=== PATIENT | female | born 1965 | race American Indian/Alaskan Native ===

== ENCOUNTER 2020-05-21 14:13 | Emergency (ER) | payer MEDICARE ==
[2020-05-21 14:24] VITALS: BP 133/71
--- NOTE | 2020-05-21 17:03 | Emergency Department Report ---
- General Chief complaint: Skin Rash Stated complaint: ALLERGIC REACTION Time Seen by Provider: 05/21/20 16:56 Source: patient Mode of arrival: Ambulatory Limitations: No Limitations - History of Present Illness Initial comments: Two 4-year-old female status post port removal in March 09 presents emerged from complaining of pruritic rash that began 1 to 2weeks and progressively worsening fashion. She states that she has been having some clear drainage from the wound and extreme pruritus which is now beginning to move towards her shoulder and her right jaw region. Ports no wheezing, no fevers, chills, sweats no nausea vomiting she is not medical follow-up appointment with her PCP Or Left last wrist feels responsible for the port placement MD complaint: rash - Related Data Previous Rx's Medication Instructions Recorded Last Taken Type Mometasone Furoate [Elocon] 1 applicatio TP QDAY #1 cream..g. 05/21/20 Unknown Rx cephALEXin [Keflex] 500 mg PO Q8HR #30 cap 05/21/20 Unknown Rx hydrOXYzine HCL [Atarax] 25 mg PO Q6HR PRN #20 tablet 05/21/20 Unknown Rx predniSONE [Deltasone] 20 mg PO QDAY #7 tab 05/21/20 Unknown Rx Allergies Allergy/AdvReac Type Severity Reaction Status Date / Time levofloxacin [From Levaquin] Allergy Hives Verified 05/21/20 14:23 Abscess Boil HPI - HPI Chief Complaint: Skin Rash Stated Complaint: ALLERGIC REACTION Time Seen by Provider: 05/21/20 16:56 Home Medications: Previous Rx's Medication Instructions Recorded Last Taken Type Mometasone Furoate [Elocon] 1 applicatio TP QDAY #1 cream..g. 05/21/20 Unknown Rx cephALEXin [Keflex] 500 mg PO Q8HR #30 cap 05/21/20 Unknown Rx hydrOXYzine HCL [Atarax] 25 mg PO Q6HR PRN #20 tablet 05/21/20 Unknown Rx predniSONE [Deltasone] 20 mg PO QDAY #7 tab 05/21/20 Unknown Rx Allergies/Adverse Reactions: Allergies Allergy/AdvReac Type Severity Reaction Status Date / Time levofloxacin [From Levaquin] Allergy Hives Verified 05/21/20 14:23 ED Review of Systems ROS: Stated complaint: ALLERGIC REACTION Other details as noted in HPI Comment: All other systems reviewed and negative Constitutional: denies: chills, fever Eyes: denies: eye pain, eye discharge, vision change ENT: denies: ear pain, throat pain Respiratory: denies: cough, shortness of breath, wheezing Cardiovascular: denies: chest pain, palpitations Endocrine: no symptoms reported Gastrointestinal: denies: abdominal pain, nausea, diarrhea Genitourinary: denies: urgency, dysuria, discharge Musculoskeletal: denies: back pain, joint swelling, arthralgia Skin: rash, change in color, pruritus. denies: lesions Neurological: denies: headache, weakness, paresthesias Psychiatric: denies: anxiety, depression Hematological/Lymphatic: denies: easy bleeding, easy bruising ED Past Medical Hx - Past Medical History Previous Medical History?: Yes Hx Congestive Heart Failure: Yes Hx Asthma: Yes Hx COPD: Yes Additional medical history: lymphodema, CIDP - Social History Smoking Status: Current Every Day Smoker Substance Use Type: None - Medications Home Medications: Home Medications Medication Instructions Recorded Confirmed Last Taken Type Mometasone Furoate [Elocon] 1 applicatio TP QDAY #1 cream..g. 05/21/20 Unknown Rx cephALEXin [Keflex] 500 mg PO Q8HR #30 cap 05/21/20 Unknown Rx hydrOXYzine HCL [Atarax] 25 mg PO Q6HR PRN #20 tablet 05/21/20 Unknown Rx predniSONE [Deltasone] 20 mg PO QDAY #7 tab 05/21/20 Unknown Rx ED Physical Exam - General Limitations: No Limitations General appearance: alert, in no apparent distress - Head Head exam: Present: atraumatic, normocephalic - Eye Eye exam: Present: normal appearance - ENT ENT exam: Present: mucous membranes moist - Neck Neck exam: Present: normal inspection - Respiratory Respiratory exam: Present: normal lung sounds bilaterally. Absent: respiratory distress - Cardiovascular Cardiovascular Exam: Present: regular rate, normal rhythm. Absent: systolic murmur, diastolic murmur, rubs, gallop - GI/Abdominal GI/Abdominal exam: Present: soft, normal bowel sounds - Extremities Exam Extremities exam: Present: normal inspection - Back Exam Back exam: Present: normal inspection - Neurological Exam Neurological exam: Present: alert, oriented X3 - Psychiatric Psychiatric exam: Present: normal affect, normal mood - Skin Skin exam: Present: warm, rash, erythema (Scaly macular rough rash to left upper chest in the area of the port removal minimal warmth no lymphangitis is noted. There is some excoriation) ED Course Vital Signs 05/21/20 14:23 Temperature 99.0 F Pulse Rate 117 H Respiratory 18 Rate Blood Pressure 133/71 [Right] O2 Sat by Pulse 96 Oximetry Critical care attestation.: If time is entered above; I have spent that time in minutes in the direct care of this critically ill patient, excluding procedure time. ED Disposition Clinical Impression: Rash Disposition: DC-01 TO HOME OR SELFCARE Is pt being admited?: No Does the pt Need Aspirin: No Condition: Stable Instructions: Rash, Adult Additional Instructions: Please be sure to follow up with your PCP in 48 hours. Please be sure to wash area with antimicrobial soap and you may start to utilize the Claritin in conjunction with the prescriptions that you were provided with today Prescriptions: hydrOXYzine HCL [Atarax] 25 mg PO Q6HR PRN #20 tablet PRN Reason: Itching predniSONE [Deltasone] 20 mg PO QDAY #7 tab Mometasone Furoate [Elocon] 1 applicatio TP QDAY #1 cream..g. cephALEXin [Keflex] 500 mg PO Q8HR #30 cap Referrals: MIRIAN YOUNG MD, PHD [Referring] - 2-3 Days (Please be sure to follow up)
== END 2020-05-21 17:20 | disposition home or self-care (01) ==
LOC: ED 14:13
DX: R21 Rash and other nonspecific skin eruption (principal); J44.9 Chronic obstructive pulmonary disease, unspecified; I50.9 Heart failure, unspecified; F17.200 Nicotine dependence, unspecified, uncomplicated; Z88.8 Allergy status to other drugs, medicaments and biological substances; Z79.899 Other long term (current) drug therapy
CPT/HCPCS: 99281

== ENCOUNTER 2020-08-12 11:43 | Emergency (ER) | payer MEDICARE ==
[2020-08-12 12:06] VITALS: BP 124/74
[2020-08-12] MEDS ORDERED: SODIUM CHLORIDE 0.9% 1000 ML 1,000 ML IV ONE (12:31)
--- NOTE | 2020-08-12 13:08 | XRay Report ---
CHEST 2 VIEWS INDICATION: Syncope. COMPARISON: None FINDINGS: Support devices: Right IJ Idzoio-e-Hxab terminates near the cavoatrial junction. Heart: Within normal limits. Lungs/pleura: No acute air space or interstitial disease. No pneumothorax. Additional findings: None. IMPRESSION: Normal chest x-ray Signer Name: Elvis Gurrola Jr, MD Signed: 08/12/2020 1:03 PM Workstation Name: [id number]
--- NOTE | 2020-08-12 14:10 | Event Note ---
ED Screening Note Date of service: 08/12/20 Time: 12:33 ED Screening Note: This initial assessment/diagnostic orders/clinical plan/treatment(s) is/are subject to change based on patients health status, clinical progression and re- assessment by fellow clinical providers in the ED. Further treatment and workup at subsequent clinical providers discretion. Patient/guardian urged not to elope from the ED as their condition may be serious if not clinically assessed and managed. Initial orders include:
--- NOTE | 2020-08-14 14:21 | Cat Scan Report ---
CT head without contrast INDICATION: Syncope TECHNIQUE: Axial images were performed without contrast. FINDINGS: There is no acute intracranial hemorrhage. Ventricles are normal in size without midline sh ift or mass effect. Rowland-white matter differentiation appears normal. No acute bone findings are seen . Visualized orbits appear normal. IMPRESSION: No acute intracranial findings. Signer Name: Dylon Dorman MD Signed: 08/12/2020 2:51 PM Workstation Name: [id number]
== END 2020-08-13 04:37 | disposition left against medical advice (07) ==
LOC: ED 11:43
DX: R55 Syncope and collapse (principal); Z53.21 Procedure and treatment not carried out due to patient leaving prior to being seen by health care provider
CPT/HCPCS: 70450; 71046; 82962; 93005

== ENCOUNTER 2020-09-23 19:34 | Inpatient (IN) | payer MEDICARE ==
--- NOTE | 2020-09-23 19:51 | Event Note ---
ED Screening Note Date of service: 09/23/20 Time: 19:49 ED Screening Note: 55 yr old c/o chest pain, sob, dizziness and light headedness x 3 days pmhx: DM, CHF, and CIDP for which she gets IVF treatments once a month. She also reports "mild" CA and "mild" CVA in past. She has a port in her right chest. This initial assessment/diagnostic orders/clinical plan/treatment(s) is/are subject to change based on patients health status, clinical progression and re- assessment by fellow clinical providers in the ED. Further treatment and workup at subsequent clinical providers discretion. Patient/guardian urged not to elope from the ED as their condition may be serious if not clinically assessed and managed. Initial orders include: Chest pain order set
[2020-09-23] MEDS ORDERED: SODIUM CHLORIDE 0.9% 1000 ML 1,000 ML ONE (20:13)
[2020-09-23] MEDS ORDERED: SODIUM CHLORIDE 0.9% 1000 ML 1,000 ML IV ONE ×2 (20:15)
--- NOTE | 2020-09-23 20:21 | Emergency Department Report ---
HPI - General Chief Complaint: Chest Pain Time Seen by Provider: 09/23/20 20:00 - [facility] HPI: Room 24 The patient is a 55-year-old female present with a chief complaint of chest pain. Patient states today while going upstairs she began to feel weak and ti red. Patient states she felt near syncopal and her legs began feeling weak. Patient states she has developed substernal chest pain radiating to the right chest that was sharp and intermittent in nature. Patient states her pain is associated with shortness of breath, nausea/vomiting and diaphoresis. Patient currently gives her chest pain score of 8/10. Patient denies history of fever or cough. The patient states 2 to 3 weeks ago she had a syncopal episode but never came to the hospital for evaluation. The patient states she last received IVIG for her history of chronic inflammatory demyelinating polyneuropathy (CIDP) 1 week ago. ED Past Medical Hx - Past Medical History Hx Congestive Heart Failure: Yes Hx Diabetes: Yes Hx Asthma: Yes Hx COPD: Yes Additional medical history: lymphodema, chronic inflammatory demyelinating polyneuropathy (CIDP) - Surgical History Past Surgical History?: Yes Additional Surgical History: D&C x 3. tubal ligation. PowerPort placement - Family History Family history: no significant - Social History Smoking Status: Current Some Day Smoker (Black and milds) Substance Use Type: None (Denies illicit drug use), Alcohol (Occasional) - Medications Home Medications: Home Medications Medication Instructions Recorded Confirmed Last Taken Type Mometasone Furoate [Elocon] 1 applicatio TP QDAY #1 cream..g. 05/21/20 Unknown Rx cephALEXin [Keflex] 500 mg PO Q8HR #30 cap 05/21/20 Unknown Rx hydrOXYzine HCL [Atarax] 25 mg PO Q6HR PRN #20 tablet 05/21/20 Unknown Rx predniSONE [Deltasone] 20 mg PO QDAY #7 tab 05/21/20 Unknown Rx ED Review of Systems ROS: Stated complaint: CHEST PAIN/WEAKNESS Other details as noted in HPI Constitutional: malaise, weakness. denies: fever Eyes: denies: eye pain ENT: denies: ear pain Respiratory: shortness of breath Cardiovascular: chest pain Endocrine: no symptoms reported Gastrointestinal: nausea, vomiting Musculoskeletal: denies: back pain Neurological: denies: headache Physical Exam - Physical Exam Vital Signs: Laboratory Tests 09/23/20 09/23/20 09/23/20 20:08 20:17 20:17 WBC 6.4 RBC 4.01 Hgb 11.3 Hct 34.6 MCV 87 MCH 28 MCHC 33 RDW 16.1 H Plt Count 313 Lymph % (Auto) 32.2 Trimble % (Auto) 12.6 H Eos % (Auto) 2.2 Baso % (Auto) 0.6 Lymph # (Auto) 2.1 Trimble # (Auto) 0.8 Eos # (Auto) 0.1 Baso # (Auto) 0.0 Seg Neutrophils % 52.4 Seg Neutrophils # 3.3 PT INR D-Dimer Sodium 131 L Potassium 3.3 L Chloride 93.0 L Carbon Dioxide 28 Anion Gap 13 BUN 19 H Creatinine 1.7 H Estimated GFR 38 BUN/Creatinine Ratio 11 Glucose 79 POC Glucose 78 Lactic Acid Calcium 9.0 Total Bilirubin 0.20 AST 26 ALT 13 Alkaline Phosphatase 82 Troponin T < 0.010 Total Protein 9.6 H Albumin 3.0 L Albumin/Globulin Ratio 0.5 Lipase 16 TSH Free T4 09/23/20 09/23/20 09/23/20 20:17 20:17 20:19 WBC RBC Hgb Hct MCV MCH MCHC RDW Plt Count Lymph % (Auto) Trimble % (Auto) Eos % (Auto) Baso % (Auto) Lymph # (Auto) Trimble # (Auto) Eos # (Auto) Baso # (Auto) Seg Neutrophils % Seg Neutrophils # PT 12.6 INR 0.95 D-Dimer 628.7 H Sodium Potassium Chloride Carbon Dioxide Anion Gap BUN Creatinine Estimated GFR BUN/Creatinine Ratio Glucose POC Glucose Lactic Acid 2.60 H* Calcium Total Bilirubin AST ALT Alkaline Phosphatase Troponin T Total Protein Albumin Albumin/Globulin Ratio Lipase TSH Free T4 09/23/20 20:19 WBC RBC Hgb Hct MCV MCH MCHC RDW Plt Count Lymph % (Auto) Trimble % (Auto) Eos % (Auto) Baso % (Auto) Lymph # (Auto) Trimble # (Auto) Eos # (Auto) Baso # (Auto) Seg Neutrophils % Seg Neutrophils # PT INR D-Dimer Sodium Potassium Chloride Carbon Dioxide Anion Gap BUN Creatinine Estimated GFR BUN/Creatinine Ratio Glucose POC Glucose Lactic Acid Calcium Total Bilirubin AST ALT Alkaline Phosphatase Troponin T Total Protein Albumin Albumin/Globulin Ratio Lipase TSH 2.780 Free T4 1.33 Physical Exam: GENERAL: The patient is well-developed well-nourished female lying on stretcher not appearing to be in acute distress. [] HEENT: Normocephalic. Atraumatic. Extraocular motions are intact. Patient has moist mucous membranes. NECK: Supple. Trachea midline CHEST/LUNGS: Clear to auscultation. There is no respiratory distress noted. HEART/CARDIOVASCULAR: Regular. There is tachycardia. There is no gallop rub or murmur. ABDOMEN: Abdomen is soft, nontender. Patient has normal bowel sounds. There is no abdominal distention. SKIN: There is no rash. There is no edema. There is no diaphoresis. NEURO: The patient is awake, alert, and oriented. The patient is cooperative. The patient has no focal neurologic deficits. The patient has normal speech MUSCULOSKELETAL: There is no evidence of acute injury. ED Medical Decision Making - Lab Data Result diagrams: 09/23/20 20:17 09/23/20 20:17 Laboratory Tests 09/23/20 09/23/20 09/23/20 20:08 20:17 20:17 WBC 6.4 RBC 4.01 Hgb 11.3 Hct 34.6 MCV 87 MCH 28 MCHC 33 RDW 16.1 H Plt Count 313 Lymph % (Auto) 32.2 Trimble % (Auto) 12.6 H Eos % (Auto) 2.2 Baso % (Auto) 0.6 Lymph # (Auto) 2.1 Trimble # (Auto) 0.8 Eos # (Auto) 0.1 Baso # (Auto) 0.0 Seg Neutrophils % 52.4 Seg Neutrophils # 3.3 PT INR D-Dimer Sodium 131 L Potassium 3.3 L Chloride 93.0 L Carbon Dioxide 28 Anion Gap 13 BUN 19 H Creatinine 1.7 H Estimated GFR 38 BUN/Creatinine Ratio 11 Glucose 79 POC Glucose 78 Lactic Acid Calcium 9.0 Total Bilirubin 0.20 AST 26 ALT 13 Alkaline Phosphatase 82 Troponin T < 0.010 Total Protein 9.6 H Albumin 3.0 L Albumin/Globulin Ratio 0.5 Lipase 16 TSH Free T4 09/23/20 09/23/20 09/23/20 20:17 20:17 20:19 WBC RBC Hgb Hct MCV MCH MCHC RDW Plt Count Lymph % (Auto) Trimble % (Auto) Eos % (Auto) Baso % (Auto) Lymph # (Auto) Trimble # (Auto) Eos # (Auto) Baso # (Auto) Seg Neutrophils % Seg Neutrophils # PT 12.6 INR 0.95 D-Dimer 628.7 H Sodium Potassium Chloride Carbon Dioxide Anion Gap BUN Creatinine Estimated GFR BUN/Creatinine Ratio Glucose POC Glucose Lactic Acid 2.60 H* Calcium Total Bilirubin AST ALT Alkaline Phosphatase Troponin T Total Protein Albumin Albumin/Globulin Ratio Lipase TSH Free T4 09/23/20 20:19 WBC RBC Hgb Hct MCV MCH MCHC RDW Plt Count Lymph % (Auto) Trimble % (Auto) Eos % (Auto) Baso % (Auto) Lymph # (Auto) Trimble # (Auto) Eos # (Auto) Baso # (Auto) Seg Neutrophils % Seg Neutrophils # PT INR D-Dimer Sodium Potassium Chloride Carbon Dioxide Anion Gap BUN Creatinine Estimated GFR BUN/Creatinine Ratio Glucose POC Glucose Lactic Acid Calcium Total Bilirubin AST ALT Alkaline Phosphatase Troponin T Total Protein Albumin Albumin/Globulin Ratio Lipase TSH 2.780 Free T4 1.33 - EKG Data -: EKG Interpreted by Me EKG shows normal: sinus rhythm Rate: tachycardia (122 bpm) - EKG Data When compared to previous EKG there are: previous EKG unavailable Interpretation: other (No ischemic changes seen) - Radiology Data Radiology results: report reviewed (Chest x-ray, VQ scan), image reviewed (Chest x-ray, VQ scan) interpreted by me: Chest x-ray-no focal infiltrates, no pneumothorax. No foreign body seen [facility] [address] [place] [address] XRay Report Signed Patient: JIMMY KRAFT MR#: [id number] : 1965 Acct:[id number] Age/Sex: 55 / F ADM Date: 09/23/20 Loc: ED Attending Dr: Ordering Physician: ANNETTE COFFEY MD Date of Service: 09/23/20 Procedure(s): XR chest 1V ap Accession Number(s): [id number] cc: ANNETTE COFFEY MD Fluoro Time In Minutes: CHEST 1 VIEW INDICATION: chest pain COMPARISON: 08/12/2020 FINDINGS: SUPPORT DEVICES: Gytzza-q-Lcac catheters tip in the superior vena cava HEART / MEDIASTINUM: No significant abnormality. LUNGS / PLEURA: No significant pulmonary or pleural abnormality. No pneumothorax. ADDITIONAL FINDINGS: IMPRESSION: 1. No acute cardiopulmonary disease Signer Name: Jesse Hwang MD Signed: 09/23/2020 8:52 PM Workstation Name: [id number] Transcribed By: RODRIGUEZ Wiggins ictated By: Jesse Hwang MD Electronically Authenticated By: Jesse Hwang MD Signed Date/Time: 09/23/202051 DD/ 50 TD/TT: [facility] [address] [place] [address] Nuclear Medicine Report Signed Patient: JIMMY KRAFT MR#: [id number] : 1965 Acct:[id number] Age/Sex: 55 / F ADM Date: 09/23/20 Loc: ED Attending Dr: Ordering Physician: ANNETTE COFFEY MD Date of Service: 09/23/20 Procedure(s): NM perfusion only lung scan Accession Number(s): [id number] cc: ANNETTE COFFEY MD NUCLEAR MEDICINE PERFUSION LUNG SCAN INDICATION / CLINICAL INFORMATION: Chest pain, shortness of breath. TECHNIQUE: 5 mCi of Tc-99m MAA were given by IV. COMPARISON: Chest radiograph dated . FINDINGS: PERFUSION: Small predominantly subsegmental perfusion defects are seen. ADDITIONAL FINDINGS: None. IMPRESSION: 1. Intermediate probability for pulmonary embolism. Signer Name: Mariano Vilchis MD Signed: 09/23/2020 11:30 PM Workstation Name: [id number] Transcribed By: FAUZIA Dictated By: Mariano Vilchis MD Electronically A uthenticated By: Mariano Vilchis MD Signed Date/Time: 09/23/202329 DD/ 27 TD/TT: - Differential Diagnosis ACS, pneumonia, PE, pericarditis, GERD Critical care attestation.: If time is entered above; I have spent that time in minutes in the direct care of this critically ill patient, excluding procedure time. ED Disposition Clinical Impression: Chest pain Disposition: OP ADMIT IP TO THIS HOSP Is pt being admited?: Yes Does the pt Need Aspirin: Yes Condition: Fair Instructions: Nonspecific Chest Pain, Adult Referrals: ROSETTE LOPEZ MD [Primary Care Provider] - 3-5 Days Time of Disposition: 23:40 (Hospitalist paged (Dr Gbenle)) Heart Score - HEART Score History: Moderately suspicious EKG: Normal Age: 45-65 Risk factors: 1-2 risk factors Troponin: < normal limit HEART Score: 3
[2020-09-23 20:45] LABS: Basophils % (Auto) 0.6 % (0.0-1.8); Eosinophils # (Auto) 0.1 K/mm3 (0.0-0.4); Eosinophils % (Auto) 2.2 % (0.0-4.3); Hematocrit 34.6 % (30.3-42.9); Hemoglobin 11.3 gm/dl (10.1-14.3); Lymphocytes # (Auto) 2.1 K/mm3 (1.2-5.4); Lymphocytes % (Auto) 32.2 % (13.4-35.0); Mean Corpuscular HGB Conc 33 % (30-34); Mean Corpuscular Volume 87 fl (79-97); Monocytes # (Auto) 0.8 K/mm3 (0.0-0.8); Monocytes % (Auto) 12.6 % (0.0-7.3); Platelet Count 313 K/mm3 (140-440); Red Blood Count 4.01 M/mm3 (3.65-5.03); Red Cell Distribution Width 16.1 % (13.2-15.2)
[2020-09-23 20:56] LABS: INR 0.95 (0.87-1.13)
--- NOTE | 2020-09-23 20:56 | XRay Report ---
CHEST 1 VIEW INDICATION: chest pain COMPARISON: 08/12/2020 FINDINGS: SUPPORT DEVICES: Tnvenc-c-Zlqb catheters tip in the superior vena cava HEART / MEDIASTINUM: No significant abnormality. LUNGS / PLEURA: No significant pulmonary or pleural abnormality. No pneumothorax. ADDITIONAL FINDINGS: IMPRESSION: 1. No acute cardiopulmonary disease Signer Name: Jesse Hwang MD Signed: 09/23/2020 8:52 PM Workstation Name: [id number]
[2020-09-23 21:10] LABS: Alanine Aminotransferase 13 units/L (7-56); BUN/Creatinine Ratio 11; Blood Urea Nitrogen 19 mg/dL (7-17); Hemolysis Index 3
[2020-09-23 21:21] LABS: Free T4 (Free Thyroxine) 1.33 ng/dL (0.76-1.46)
--- NOTE | 2020-09-23 23:34 | Nuclear Medicine Report ---
NUCLEAR MEDICINE PERFUSION LUNG SCAN INDICATION / CLINICAL INFORMATION: Chest pain, shortness of breath. TECHNIQUE: 5 mCi of Tc-99m MAA were given by IV. COMPARISON: Chest radiograph dated . FINDINGS: PERFUSION: Small predominantly subsegmental perfusion defects are seen. ADDITIONAL FINDINGS: None. IMPRESSION: 1. Intermediate probability for pulmonary embolism. Signer Name: Mariano Vilchis MD Signed: 09/23/2020 11:30 PM Workstation Name: [id number]
[2020-09-23] MEDS ORDERED: ASPIRIN 325 MG TAB PO ONE (23:52)
[2020-09-24] MEDS ORDERED: ACETAMINOPHEN 325 MG TAB PO PRN (00:04)
[2020-09-24] MEDS ORDERED: MAGNESIUM HYDROXIDE (MOM) ORAL LIQD UDC PO PRN (00:04)
[2020-09-24] MEDS ORDERED: ONDANSETRON 4 MG/2 ML INJ IV PRN (00:04)
[2020-09-24] MEDS ORDERED: DEXTROSE 50% IN WATER (25GM) 50 ML SYRINGE IV PRN (00:04)
--- NOTE | 2020-09-24 00:15 | History and Physical Report ---
History of Present Illness Date of examination: 09/23/20 Date of admission: 09/23/20 23:53 Chief complaint: Chest Pain History of present illness: 55-year-old female with known history of hypertension, diabetes mellitus, asthma, history of chronic inflammatory demyelinating polyneuropathy presenting to the emergency room today complaining of chest pain. Chest pain is said to be substernal radiating towards the right side of her chest. Has been intermittent and sharp in nature. She has had associated shortness of breath, nausea and vomiting and diaphoresis. Pain is said to be worse on taking a deep breath. Patient denies any fever or chills, denies any cough, denies any headache, however she has had some near syncopal episode. Patient states she has felt weak and gets tired easily. Patient has been on IVIG for her history of chronic inflammatory demyelinating polyneuropathy and last dose of IVIG was gotten about a week ago. Work-up in the emergency room today reveals elevated D-dimer. Chest x-ray, troponin, EKG, and other labs were unremarkable. VQ scan done in the emergency room reveals intermediate possibility for pulmonary embolism. Patient is being admitted for chest pain to rule out pulmonary embolism. She has been started on heparin drip. Past History Past Medical History: diabetes, hypertension, other (Asthma, lymphedema, chronic inflammatory demyelinating polyneuropathy.) Past Surgical History: Other (D&C x3, tubal ligation, PowerPort placement) Social history: smoking (Current daily smoker), alcohol abuse (Occasional alcohol intake) Family history: no significant family history Medications and Allergies Allergies Allergy/AdvReac Type Severity Reaction Status Date / Time levofloxacin [From Levaquin] Allergy Hives Verified 05/21/20 14:23 Home Medications Medication Instructions Recorded Confirmed Last Taken Type Mometasone Furoate [Elocon] 1 applicatio TP QDAY #1 cream..g. 05/21/20 Unknown Rx cephALEXin [Keflex] 500 mg PO Q8HR #30 cap 05/21/20 Unknown Rx hydrOXYzine HCL [Atarax] 25 mg PO Q6HR PRN #20 tablet 05/21/20 Unknown Rx predniSONE [Deltasone] 20 mg PO QDAY #7 tab 05/21/20 Unknown Rx Active Meds: Active Medications Heparin Sodium/Sodium Chloride (Heparin/ 0.45% Nacl-25,000 Unit/500 Ml) 25,000 unit in 500 mls @ 30 mls/hr IV TITR CROW; Protocol Review of Systems Constitutional: no fever, no chills Ears, nose, mouth and throat: no nasal congestion, no sore throat Cardiovascular: chest pain, syncope (Near Syncope), no palpitations Respiratory: no cough, no shortness of breath Gastrointestinal: nausea, vomiting, no abdominal pain, no diarrhea Genitourinary Female: no flank pain, no dysuria, no hematuria Musculoskeletal: no neck pain, no low back pain Integumentary: no rash, no pruritis Exam - Constitutional Vitals: Temp Pulse Resp BP Pulse Ox 97.8 F 106 H 25 H 102/58 98 09/23/20 23:57 09/23/20 23:01 09/23/20 23:01 09/23/20 23:01 09/23/20 23:01 General appearance: Present: no acute distress, well-nourished - EENT Eyes: Present: PERRL, EOM intact. Absent: scleral icterus ENT: hearing intact, clear oral mucosa, dentition normal - Neck Neck: Present: supple, normal ROM - Respiratory Respiratory effort: normal Respiratory: bilateral: CTA - Cardiovascular Rhythm: regular Heart Sounds: Present: S1 & S2. Absent: gallop, systolic murmur, diastolic murmur, rub, click - Extremities Extremities: no ischemia, pulses intact, pulses symmetrical, No edema, normal temperature, normal color, Full ROM Peripheral Pulses: within normal limits - Abdominal General gastrointestinal: Present: soft, non-tender, non-distended, normal bowel sounds. Absent: mass - Integumentary Integumentary: Present: clear, warm, dry. Absent: rash - Musculoskeletal Musculoskeletal: strength equal bilaterally - Psychiatric Psychiatric: appropriate mood/affect, intact judgment & insight, memory intact, cooperative - Neurologic Neurologic: CNII-XII intact, no focal deficits, moves all extremities HEART Score - HEART Score EKG: Normal Age: 45-65 Risk factors: 1-2 risk factors Troponin: Troponin T < 0.010 ng/mL (0.00-0.029) 09/23/20 20:17 Troponin: < normal limit Results - Labs CBC & Chem 7: 09/23/20 20:17 09/23/20 20:17 Labs: Abnormal lab results 03/09/23/20 09/23/20 Range/Units 20:17 20:17 20:17 RDW 16.1 H (13.2-15.2) % [place] % (Auto) 12.6 H (0.0-7.3) % D-Dimer 628.7 H (0-234) ng/mlDDU Sodium 131 L (137-145) mmol/L Potassium 3.3 L (3.6-5.0) mmol/L Chloride 93.0 L (98-107) mmol/L BUN 19 H (7-17) mg/dL Creatinine 1.7 H (0.6-1.2) mg/dL Lactic Acid (0.7-2.0) mmol/L Total Protein 9.6 H (6.3-8.2) g/dL Albumin 3.0 L (3.9-5) g/dL 09/23/20 Range/Units 20:19 RDW (13.2-15.2) % [place] % (Auto) (0.0-7.3) % D-Dimer (0-234) ng/mlDDU Sodium (137-145) mmol/L Potassium (3.6-5.0) mmol/L Chloride (98-107) mmol/L BUN (7-17) mg/dL Creatinine (0.6-1.2) mg/dL Lactic Acid 2.60 H* (0.7-2.0) mmol/L Total Protein (6.3-8.2) g/dL Albumin (3.9-5) g/dL Assessment and Plan - Patient Problems (1) Chest pain Current Visit: Yes Status: Acute Plan to address problem: Patient admitted to the telemetry floor. Will monitor EKG. VQ scan reveals intermediate possibility for a pulmonary embolism. She has been commenced on heparin drip. (2) DVT prophylaxis Current Visit: Yes Status: Acute Plan to address problem: Patient currently on anticoagulation. (3) Full code status Current Visit: Yes Status: Acute Plan to address problem: Patient is full code.
--- NOTE | 2020-09-24 01:14 | Vascular Lab Report ---
VL venous duplex LE BILAT INDICATION / CLINICAL INFORMATION: Pain. TECHNIQUE: Duplex doppler imaging was performed using venous compression and other maneuvers. COMPARISON: None available. FINDINGS: No venous thrombosis is identified within the visualized extremity vasculature. ADDITIONAL FINDINGS: None. IMPRESSION: 1. No sonographic evidence for DVT in the visualized bilateral lower extremity vasculature. Signer Name: Mariano Vilchis MD Signed: 09/24/2020 1:09 AM Workstation Name: [id number]
[2020-09-24] MEDS: HEPARIN/ 0.45% NACL DRIP 25,000 UNIT/500 ML BAG IV SCH ×2 (01:23→20:30)
[2020-09-24] MEDS: INSULIN LISPRO 100 UNIT/ML SUB-Q SCH ×3 (09:19→22:46)
--- NOTE | 2020-09-24 11:16 | Progress Note ---
Assessment and Plan Assessment and plan: -- chest pain; Serial cardiac enzymes negative Patient VQ scan intermediate probability for PE Started on heparin drip,Oxygen titrate O2 sats more than 90% --Acute exacerbation of bronchial asthma; Oxygen, nebulizers, IV steroids, supportive care Pulmonary consult if needed --Intermediate probability for PE/on VQ Full anticoagulation with heparin drip per protocol Echocardiogram, no right heart strain Check proBNP, oxygen titrate O2 sats to more than 90% Lower extremity venous Doppler negative for DVT Consider vascular evaluation if needed --Elevated D-dimers-; VQ scan intermediate probability/on heparin If renal function improves, may check CTA chest to rule out PE --Acute kidney injury; Due to ATN, gentle hydration, monitor renal function Avoid nephrotoxins, nephrology consult if no improvement --DVT prophylaxis; patient is on heparin drip --Full CODE STATUS We will closely monitor the patient and adjust the management as needed Plan of care reviewed with patient, her nurse, case management and [facility] History Interval history: I have seen and examined the patient at the bedside Patient's chart and medications reviewed Patient was admitted with chest pain Elevated D-dimers VQ scan intermediate probability for PE On heparin drip, unable to get CTA due to renal failure In mild distress Vital signs noted Hospitalist Physical - Constitutional Vitals: Temp Pulse Resp BP Pulse Ox 97.8 F 92 H 17 94/51 95 09/23/20 23:57 09/24/20 08:31 09/24/20 08:31 09/24/20 08:31 09/24/20 08:31 General appearance: Present: no acute distress, well-nourished - EENT Eyes: Present: PERRL, EOM intact - Neck Neck: Present: supple, normal ROM - Respiratory Respiratory effort: labored Respiratory: bilateral: diminished, wheezing, negative: rales, rhonchi - Cardiovascular Rhythm: regular Heart Sounds: Present: S1 & S2 - Extremities Extremities: no ischemia, No edema - Abdominal General gastrointestinal: soft, non-tender, non-distended, normal bowel sounds - Integumentary Integumentary: Present: clear, warm - Psychiatric Psychiatric: appropriate mood/affect, cooperative - Neurologic Neurologic: CNII-XII intact, moves all extremities HEART Score - HEART Score EKG: Normal Age: 45-65 Risk factors: 1-2 risk factors Troponin: Troponin T < 0.010 ng/mL (0.00-0.029) 09/24/20 01:30 Troponin: < normal limit Results - Labs CBC & Chem 7: 09/23/20 20:17 09/24/20 11:59 Labs: Laboratory Last Values WBC 6.4 K/mm3 (4.5-11.0) 09/23/20 20:17 RBC 4.01 M/mm3 (3.65-5.03) 09/23/20 20:17 Hgb 11.3 gm/dl (10.1-14.3) 09/23/20 20:17 Hct 34.6 % (30.3-42.9) 09/23/20 20:17 MCV 87 fl (79-97) 09/23/20 20:17 MCH 28 pg (28-32) 09/23/20 20:17 MCHC 33 % (30-34) 09/23/20 20:17 RDW 16.1 % (13.2-15.2) H 09/23/20 20:17 Plt Count 313 K/mm3 (140-440) 09/23/20 20:17 Lymph % (Auto) 32.2 % (13.4-35.0) 09/23/20 20:17 [place] % (Auto) 12.6 % (0.0-7.3) H 09/23/20 20:17 Eos % (Auto) 2.2 % (0.0-4.3) 09/23/20 20:17 Baso % (Auto) 0.6 % (0.0-1.8) 09/23/20 20:17 Lymph # (Auto) 2.1 K/mm3 (1.2-5.4) 09/23/20 20:17 [place] # (Auto) 0.8 K/mm3 (0.0-0.8) 09/23/20 20:17 Eos # (Auto) 0.1 K/mm3 (0.0-0.4) 09/23/20 20:17 Baso # (Auto) 0.0 K/mm3 (0.0-0.1) 09/23/20 20:17 Seg Neutrophils % 52.4 % (40.0-70.0) 09/23/20 20:17 Seg Neutrophils # 3.3 K/mm3 (1.8-7.7) 09/23/20 20:17 PT 12.6 Sec. (12.2-14.9) 09/23/20 20:17 INR 0.95 (0.87-1.13) 09/23/20 20:17 D-Dimer 628.7 ng/mlDDU (0-234) H 09/23/20 20:17 Heparin Anti-Xa Level 0.97 U.I./ml (0.3-0.7) H 09/24/20 09:05 Sodium 131 mmol/L (137-145) L 09/23/20 20:17 Potassium 3.3 mmol/L (3.6-5.0) L 09/23/20 20:17 Chloride 93.0 mmol/L (98-107) L 09/23/20 20:17 Carbon Dioxide 28 mmol/L (22-30) 09/23/20 20:17 Anion Gap 13 mmol/L 09/23/20 20:17 BUN 19 mg/dL (7-17) H 09/23/20 20:17 Creatinine 1.7 mg/dL (0.6-1.2) H 09/23/20 20:17 Estimated GFR 38 ml/min 09/23/20 20:17 BUN/Creatinine Ratio 11 % 09/23/20 20:17 Glucose 79 mg/dL (65-100) 09/23/20 20:17 POC Glucose 112 mg/dL (70-105) H 09/24/20 00:22 Lactic Acid 2.60 mmol/L (0.7-2.0) H* 09/23/20 20:19 Calcium 9.0 mg/dL (8.4-10.2) 09/23/20 20:17 Total Bilirubin 0.20 mg/dL (0.1-1.2) 09/23/20 20:17 AST 26 units/L (5-40) 09/23/20 20:17 ALT 13 units/L (7-56) 09/23/20 20:17 Alkaline Phosphatase 82 units/L (35-129) 09/23/20 20:17 Troponin T < 0.010 ng/mL (0.00-0.029) 09/24/20 01:30 Total Protein 9.6 g/dL (6.3-8.2) H 09/23/20 20:17 Albumin 3.0 g/dL (3.9-5) L 09/23/20 20:17 Albumin/Globulin Ratio 0.5 % 09/23/20 20:17 Lipase 16 units/L (13-60) 09/23/20 20:17 TSH 2.780 mlU/mL (0.270-4.200) 09/23/20 20:19 Free T4 1.33 ng/dL (0.76-1.46) 09/23/20 20:19 Microbiology: Microbiology 09/23/20 20:19 Peripheral/Venous Blood Culture - Preliminary Culture in Progress 09/23/20 20:19 Peripheral/Venous Blood Culture - Preliminary Culture in Progress Active Medications - Current Medications Current Medications: Generic Name Dose Route Start Last Admin Trade Name Freq PRN Reason Stop Dose Admin Acetaminophen 650 mg 09/24/20 00:04 Acetaminophen 325 Mg Tab PO Q4H PRN Pain MILD(1-3)/Fever >100.5/HANEY Amlodipine Besylate 5 mg 09/25/20 10:00 Amlodipine 5 Mg Tab PO DAILY [facility] Atorvastatin Calcium 10 mg 09/24/20 22:00 Atorvastatin 10 Mg Tab PO QHS [facility] Dextrose 50 ml 09/24/20 00:04 Dextrose 50% In Water (25gm) 50 Ml Syringe IV Q30MIN PRN Hypoglycemia Protocol Hydrochlorothiazide 25 mg 09/25/20 10:00 Hydrochlorothiazide 25 Mg Tab PO QDAY [facility] Heparin Sodium/Sodium Chloride 25,000 unit in 500 mls @ 30 mls/hr 09/23/20 23:45 09/24/20 10:49 Heparin/ 0.45% Nacl-25,000 Unit/500 Ml IV 1,300 units/hr TITR CROW 26 mls/hr Titration Protocol 1,500 UNITS/HR Insulin Human Lispro 0 unit 09/24/20 07:30 09/24/20 09:19 Insulin Lispro 100 Unit/Ml SUB-Q Not Given ACHS [facility] Protocol Magnesium Hydroxide 30 ml 09/24/20 00:04 Magnesium Hydroxide (Mom) Oral Liqd Udc PO Q4H PRN Constipation Morphine Sulfate 2 mg 09/24/20 00:04 Morphine 2 Mg/1 Ml Inj IV Q4H PRN Pain, Moderate (4-6) Ondansetron HCl 4 mg 09/24/20 00:04 Ondansetron 4 Mg/2 Ml Inj IV Q8H PRN Nausea And Vomiting Sodium Chloride 10 ml 09/24/20 10:00 Sodium Chloride 0.9% 10 Ml Flush Syringe IV BID CROW Sodium Chloride 10 ml 09/24/20 00:04 Sodium Chloride 0.9% 10 Ml Flush Syringe IV PRN PRN LINE FLUSH
[2020-09-24 13:26] LABS: Calcium 8.2 mg/dL (8.4-10.2)
[2020-09-24] MEDS ORDERED: ALBUTEROL 2.5 MG/3 ML NEBU IH PRN (17:03)
[2020-09-24] MEDS: IPRATROPIUM/ALBUTEROL SULFATE 3 ML AMPUL.NEB IH SCH (19:46)
[2020-09-24] MEDS: MORPHINE 2 MG/1 ML INJ IV PRN (20:30)
[2020-09-25] MEDS: IPRATROPIUM/ALBUTEROL SULFATE 3 ML AMPUL.NEB IH SCH ×4 (03:24→20:50)
[2020-09-25 05:32] LABS: Basophils % (Auto) 0.5 % (0.0-1.8); Eosinophils # (Auto) 0.4 K/mm3 (0.0-0.4); Eosinophils % (Auto) 7.5 % (0.0-4.3); Hematocrit 28.8 % (30.3-42.9); Hemoglobin 9.1 gm/dl (10.1-14.3); Lymphocytes # (Auto) 2.5 K/mm3 (1.2-5.4); Mean Corpuscular HGB Conc 32 % (30-34); Mean Corpuscular Volume 88 fl (79-97); Monocytes # (Auto) 0.7 K/mm3 (0.0-0.8); Monocytes % (Auto) 11.8 % (0.0-7.3); Platelet Count 229 K/mm3 (140-440); Red Blood Count 3.27 M/mm3 (3.65-5.03); Red Cell Distribution Width 15.8 % (13.2-15.2)
[2020-09-25 05:36] LABS: BUN/Creatinine Ratio 19; Blood Urea Nitrogen 17 mg/dL (7-17); Hemolysis Index 0
[2020-09-25 05:39] LABS: INR 1.14 (0.87-1.13)
[2020-09-25] MEDS: INSULIN LISPRO 100 UNIT/ML SUB-Q SCH ×5 (08:45→21:50)
[2020-09-25] MEDS: hydroCHLOROthiazide 25 MG TAB PO SCH (10:24)
[2020-09-25] MEDS: amLODIPine 5 MG TAB PO SCH (10:24)
--- NOTE | 2020-09-25 11:20 | Progress Note ---
Assessment and Plan Assessment and plan: --Intermediate probability for PE/on VQ Full anticoagulation with heparin drip per protocol Echocardiogram, no right heart strain the EF 50% proBNP normal range, oxygen titrate O2 sats to more than 90% Lower extremity venous Doppler negative for DVT Patient creatinine is normal range, will check CTA chest To evaluate for PE --Acute kidney injury; Due to ATN, gentle hydration, monitor renal function Resolved, creatinine within normal range, avoid nephrotoxins -- chest pain; Serial cardiac enzymes negative Patient VQ scan intermediate probability for PE Started on heparin drip,Oxygen titrate O2 sats more than 90% --Acute exacerbation of bronchial asthma; Oxygen, nebulizers, IV steroids, supportive care Pulmonary consult if needed --Elevated D-dimers-; VQ scan intermediate probability/on heparin If renal function improves, may check CTA chest to rule out PE --DVT prophylaxis; patient is on heparin drip --Full CODE STATUS We will closely monitor the patient and adjust the management as needed Plan of care reviewed with patient, her nurse, case management and [facility] 09/24/20; patient had elevated D-dimers, acute kidney injury, VQ scan intermediate probability for PE Patient is on full dose heparin, closely monitor renal function if improves will get CTA chest 09/25/2020; renal function is within normal limits today, will check CT angiogram of the chest to evaluate for PE If no PE will DC heparin drip . Follow CTA chest History Interval history: I have seen and examined the patient at the bedside Patient's chart and medications reviewed Pt intermediate probability for PE on VQ scan,On heparin drip Patient feels better no new complaints Vital signs noted Hospitalist Physical - Constitutional Vitals: Temp Pulse Resp BP Pulse Ox 98.3 F 99 H 15 112/71 96 09/25/20 08:10 09/25/20 08:10 09/25/20 08:10 09/25/20 10:24 09/25/20 08:10 General appearance: Present: no acute distress, well-nourished - EENT Eyes: Present: PERRL, EOM intact - Neck Neck: Present: supple, normal ROM - Respiratory Respiratory effort: normal Respiratory: bilateral: diminished, negative: rales, rhonchi, wheezing - Cardiovascular Rhythm: regular Heart Sounds: Present: S1 & S2 - Extremities Extremities: no ischemia, No edema - Abdominal General gastrointestinal: soft, non-tender, non-distended, normal bowel sounds - Integumentary Integumentary: Present: clear, warm - Psychiatric Psychiatric: appropriate mood/affect, cooperative - Neurologic Neurologic: CNII-XII intact, moves all extremities HEART Score - HEART Score EKG: Normal Age: 45-65 Risk factors: 1-2 risk factors Troponin: Troponin T < 0.010 ng/mL (0.00-0.029) 09/24/20 01:30 Troponin: < normal limit Results - Labs CBC & Chem 7: 09/25/20 05:03 09/25/20 05:03 Labs: Laboratory Last Values WBC 5.9 K/mm3 (4.5-11.0) 09/25/20 05:03 RBC 3.27 M/mm3 (3.65-5.03) L 09/25/20 05:03 Hgb 9.1 gm/dl (10.1-14.3) L 09/25/20 05:03 Hct 28.8 % (30.3-42.9) L 09/25/20 05:03 MCV 88 fl (79-97) 09/25/20 05:03 MCH 28 pg (28-32) 09/25/20 05:03 MCHC 32 % (30-34) 09/25/20 05:03 RDW 15.8 % (13.2-15.2) H 09/25/20 05:03 Plt Count 229 K/mm3 (140-440) 09/25/20 05:03 Lymph % (Auto) 43.0 % (13.4-35.0) H 09/25/20 05:03 [place] % (Auto) 11.8 % (0.0-7.3) H 09/25/20 05:03 Eos % (Auto) 7.5 % (0.0-4.3) H 09/25/20 05:03 Baso % (Auto) 0.5 % (0.0-1.8) 09/25/20 05:03 Lymph # (Auto) 2.5 K/mm3 (1.2-5.4) 09/25/20 05:03 [place] # (Auto) 0.7 K/mm3 (0.0-0.8) 09/25/20 05:03 Eos # (Auto) 0.4 K/mm3 (0.0-0.4) 09/25/20 05:03 Baso # (Auto) 0.0 K/mm3 (0.0-0.1) 09/25/20 05:03 Seg Neutrophils % 37.2 % (40.0-70.0) L 09/25/20 05:03 Seg Neutrophils # 2.2 K/mm3 (1.8-7.7) 09/25/20 05:03 PT 14.5 Sec. (12.2-14.9) 09/25/20 05:03 INR 1.14 (0.87-1.13) H 09/25/20 05:03 D-Dimer 628.7 ng/mlDDU (0-234) H 09/23/20 20:17 Heparin Anti-Xa Level 0.31 U.I./ml (0.3-0.7) 09/24/20 15:38 Sodium 134 mmol/L (137-145) L 09/25/20 05:03 Potassium 3.5 mmol/L (3.6-5.0) L 09/25/20 05:03 Chloride 98.4 mmol/L (98-107) 09/25/20 05:03 Carbon Dioxide 29 mmol/L (22-30) 09/25/20 05:03 Anion Gap 10 mmol/L 09/25/20 05:03 BUN 17 mg/dL (7-17) 09/25/20 05:03 Creatinine 0.9 mg/dL (0.6-1.2) 09/25/20 05:03 Estimated GFR > 60 ml/min 09/25/20 05:03 BUN/Creatinine Ratio 19 % 09/25/20 05:03 Glucose 153 mg/dL (65-100) H 09/25/20 05:03 POC Glucose 120 mg/dL (70-105) H 09/24/20 21:07 Lactic Acid 2.60 mmol/L (0.7-2.0) H* 09/23/20 20:19 Calcium 8.0 mg/dL (8.4-10.2) L 09/25/20 05:03 Total Bilirubin 0.20 mg/dL (0.1-1.2) 09/23/20 20:17 AST 26 units/L (5-40) 09/23/20 20:17 ALT 13 units/L (7-56) 09/23/20 20:17 Alkaline Phosphatase 82 units/L (35-129) 09/23/20 20:17 Troponin T < 0.010 ng/mL (0.00-0.029) 09/24/20 01:30 NT-Pro-B Natriuret Pep 68.00 pg/mL (0-900) 09/24/20 11:59 Total Protein 9.6 g/dL (6.3-8.2) H 09/23/20 20:17 Albumin 3.0 g/dL (3.9-5) L 09/23/20 20:17 Albumin/Globulin Ratio 0.5 % 09/23/20 20:17 Lipase 16 units/L (13-60) 09/23/20 20:17 TSH 2.780 mlU/mL (0.270-4.200) 09/23/20 20:19 Free T4 1.33 ng/dL (0.76-1.46) 09/23/20 20:19 Microbiology: Microbiology 09/23/20 20:19 Peripheral/Venous Blood Culture - Preliminary NO GROWTH AFTER 24 HOURS 09/23/20 20:19 Peripheral/Venous Blood Culture - Preliminary NO GROWTH AFTER 24 HOURS Rapp/IV: Voiding Method Toilet Active Medications - Current Medications Current Medications: Generic Name Dose Route Start Last Admin Trade Name Freq PRN Reason Stop Dose Admin Acetaminophen 650 mg 09/24/20 00:04 Acetaminophen 325 Mg Tab PO Q4H PRN Pain MILD(1-3)/Fever >100.5/HANEY Albuterol 2.5 mg 09/24/20 17:03 Albuterol 2.5 Mg/3 Ml Nebu IH Q4HRT PRN Shortness Of Breath Albuterol/Ipratropium 1 ampul 09/24/20 20:00 09/25/20 08:56 Ipratropium/Albuterol Sulfate 3 Ml Ampul.Neb IH 1 ampul Q6HRT CROW Administration Amlodipine Besylate 5 mg 09/25/20 10:00 09/25/20 10:24 Amlodipine 5 Mg Tab PO Not Given DAILY [facility] Atorvastatin Calcium 10 mg 09/24/20 22:00 09/24/20 22:45 Atorvastatin 10 Mg Tab PO 10 mg QHS CROW Administration Dextrose 50 ml 09/24/20 00:04 Dextrose 50% In Water (25gm) 50 Ml Syringe IV Q30MIN PRN Hypoglycemia Protocol Hydrochlorothiazide 25 mg 09/25/20 10:00 09/25/20 10:24 Hydrochlorothiazide 25 Mg Tab PO 25 mg QDAY CROW Administration Heparin Sodium/Sodium Chloride 25,000 unit in 500 mls @ 30 mls/hr 09/23/20 23:45 09/24/20 20:30 Heparin/ 0.45% Nacl-25,000 Unit/500 Ml IV 1,300 units/hr TITR CROW 26 mls/hr Administration Protocol 1,500 UNITS/HR Insulin Human Lispro 0 unit 09/24/20 07:30 09/25/20 09:30 Insulin Lispro 100 Unit/Ml SUB-Q 2 unit ACHS [facility] Administration Protocol Magnesium Hydroxide 30 ml 09/24/20 00:04 Magnesium Hydroxide (Mom) Oral Liqd Udc PO Q4H PRN Constipation Morphine Sulfate 2 mg 09/24/20 00:04 09/24/20 20:30 Morphine 2 Mg/1 Ml Inj IV 2 mg Q4H PRN Administration Pain, Moderate (4-6) Ondansetron HCl 4 mg 09/24/20 00:04 Ondansetron 4 Mg/2 Ml Inj IV Q8H PRN Nausea And Vomiting Sodium Chloride 10 ml 09/24/20 10:00 09/25/20 10:24 Sodium Chloride 0.9% 10 Ml Flush Syringe IV 10 ml BID CROW Administration Sodium Chloride 10 ml 09/24/20 00:04 Sodium Chloride 0.9% 10 Ml Flush Syringe IV PRN PRN LINE FLUSH Nutrition/Malnutrition Assess - Dietary Evaluation Nutrition/Malnutrition Findings: Nutrition Notes Start: 09/24/20 15:11 Freq: Status: Active Protocol: Document 09/24/20 15:11 AL (Rec: 09/24/20 15:22 AL [id number]) Co-Sign 09/24/20 15:11 LP Nutrition Notes Need for Assessment generated from: MD Order,Education Initial or Follow up Assessment Current Diagnosis COPD,Diabetes,Hypertension, Heart Failure Other Pertinent Diagnosis CIDP, Lymphedema Current Diet Cardiac/ Consistent Carb Labs/Tests Na 131 K 3.3 BUN 79 Cr 1.7 Pertinent Medications Heparin in .45 NS 30 ml/hr Height 5 ft 5 in Weight 108.4 kg [place] Body Weight (kg) 56.81 BMI 39.7 Intake Prior to Admission Fair Weight change and time frame 2% wt loss in 3 months Weight Status Morbidly Obese Subjective/Other Information MD consult for diet education. Pt explained that she also has CHF, COPD, and Lymphedema. Pt reports that appetite has severly decreased. to where she regularly consumes <50% of what she normally eats. This plus a 2% wt loss has happened within past 6 months. Pt very receptive to diet education on DM, CHF, Heart healthy diet and Carb counting. Burn Absent Trauma Absent GI Symptoms Nausea,Vomiting Current % PO Poor (25-49%) Minimum of two criteria No Energy Intake (severe) < or equal to 50% Estimated Energy Requirement > or equal to 5 days #2 Nutrition Diagnosis Predicted suboptimal energy intake Etiology N/V As Evidenced by Signs and Symptoms recent hx of low intakes reported by pt. #1 Nutrition Diagnosis Food and nutrition-related knowledge deficit Etiology DM, CHF, CIPD As Evidenced by Signs and Symptoms Pt has never received diet education before. Is patient on ventilator? No Is Patient Ambulatory and/or Out of Bed No REE-([facility]-confined to bed) 2024.732 Kcal/Kg value to use for calculation 15 Approximate Energy Requirements Using 1626 kcal/Kg Calculation Used for Recommendations Kcal/kg Additional Notes Pro: 66-82 g (.8-1.0 g/kg AdjBW- 82.6) Fluid: 9429-8423 ml Nutrition Intervention Change Diet Order: Current diet as ordered Teaching Recipient Patient Learning Readiness Good Teaching Methods Discussion,Handout Response to Teaching Return demonstration,Verbalize understanding Education Handouts Provided General Healthful Nutrition Therapy Nausea/Vomiting Nutrition Therapy Carb Counting for People with Diabetes Congestive Heart Failure Nutrition Therapy Barriers to Learning No Barriers RD phone number provided Yes Patient aware of follow up options Yes Goal #1 Meet at least 75% of total estimated energy needs PO Anticipated Discharge Needs: Cardiac/ Consistent Carbohydrate diet. Follow-Up By: 09/27/20 Additional Comments FU for intakes, need for ONS
[2020-09-25] MEDS: HEPARIN/ 0.45% NACL DRIP 25,000 UNIT/500 ML BAG IV SCH ×2 (15:19→18:56)
--- NOTE | 2020-09-25 18:03 | Cat Scan Report ---
CTA CHEST WITH IV CONTRAST INDICATION: Shortness of breath, abnormal VQ scan. TECHNIQUE: Axial CT images were obtained through the chest after injection of 100 cc Omni 350 IV contrast. 3 luis ne MIP reconstructions were produced. All CT scans at this location are performed using CT dose reduc tion for ALARA by means of automated exposure control. COMPARISON: None available. FINDINGS: PULMONARY ARTERIES: No pulmonary emboli. THORACIC AORTA: No acute abnormality. HEART: Normal. Persistent left SVC CORONARY ARTERIES: No significant calcification. PLEURA: No pleural effusion. No pneumothorax. LYMPH NODES: No significant adenopathy. LUNGS: No acute air space or interstitial disease. ADDITIONAL FINDINGS: Right internal jugular Port-A-Cath has tip in right atrium UPPER ABDOMEN: No acute findings. SKELETAL STRUCTURES: No significant osseous abnormality. IMPRESSION: 1. No CT evidence for pulmonary embolism. 2. No acute findings. Signer Name: Jose Allen MD Signed: 09/25/2020 5:58 PM Workstation Name: [id number]
[2020-09-25] MEDS ORDERED: POTASSIUM CHLORIDE ER 10 MEQ TAB PO ONE (21:04)
[2020-09-25] MEDS: MORPHINE 2 MG/1 ML INJ IV PRN (21:44)
[2020-09-26 05:17] LABS: Hematocrit 30.5 % (30.3-42.9); Hemoglobin 9.5 gm/dl (10.1-14.3)
[2020-09-26 05:35] LABS: BUN/Creatinine Ratio 14; Blood Urea Nitrogen 11 mg/dL (7-17); Calcium 8.5 mg/dL (8.4-10.2); Hemolysis Index 8
[2020-09-26] MEDS: IPRATROPIUM/ALBUTEROL SULFATE 3 ML AMPUL.NEB IH SCH ×2 (09:00→12:53)
[2020-09-26] MEDS: INSULIN LISPRO 100 UNIT/ML SUB-Q SCH ×2 (09:11→12:04)
[2020-09-26] MEDS: amLODIPine 5 MG TAB PO SCH (11:11)
[2020-09-26] MEDS: hydroCHLOROthiazide 25 MG TAB PO SCH (11:11)
[2020-09-26 11:36] VITALS: BP 114/62
--- NOTE | 2020-09-26 14:12 | Discharge Summary ---
Providers - Providers Date of Admission: 09/24/20 17:34 Date of discharge: 09/26/20 Attending physician: WILLIE COYNE 09/24/20 00:08 Consult to Dietitian/Nutrition [CONS] Routine Physician Instructions: Reason For Exam: Reason for Consult: Diet education 09/24/20 14:20 Physical Therapy Evaluation and Treat [CONS] Routine Comment: Reason For Exam: debillity Mode of Transport?: Wheelchair Primary care physician: ROSETTE LOPEZ Hospitalization Condition: Fair Pertinent studies: VQ scan; intermediate probability for PE CTA chest; negative for PE Lower extremity venous Doppler; negative for DVT Echo; EF 50 to 55% Hospital course: --Intermediate probability for PE/on VQ Full anticoagulation with heparin drip per protocol Echocardiogram, no right heart strain the EF 50% proBNP normal range, oxygen titrate O2 sats to more than 90% Lower extremity venous Doppler negative for DVT --Acute kidney injury; Due to ATN, gentle hydration, monitor renal function Resolved, creatinine within normal range, avoid nephrotoxins --Atypical chest pain; Probably secondary to GERD Serial cardiac enzymes negative Patient VQ scan intermediate probability for PE CTA negative for PE --GERD; probably the causeatypical chest pain Protonix --Acute exacerbation of bronchial asthma; Oxygen, nebulizers, supportive care Pulmonary consult if needed --Elevated D-dimers-; VQ scan intermediate probability/on heparin If renal function improves, may check CTA chest to rule out PE Patient is hemodynamically stable for discharge Disposition: [id number] HOME UNDER HOME [facility] Time spent for discharge: 35 min Core Measure Documentation - Palliative Care Palliative Care/ Comfort Measures: Not Applicable - Core Measures Any of the following diagnoses?: none Exam - Constitutional Vitals: Temp Pulse Resp BP Pulse Ox 98.4 F 72 18 114/62 98 09/26/20 11:34 09/26/20 12:59 09/26/20 12:59 09/26/20 11:34 09/26/20 11:34 General appearance: Present: no acute distress, well-nourished, obese - EENT Eyes: Present: PERRL, EOM intact - Neck Neck: Present: supple, normal ROM - Respiratory Respiratory effort: normal Respiratory: bilateral: diminished, negative: rales, rhonchi, wheezing - Cardiovascular Rhythm: regular Heart Sounds: Present: S1 & S2 - Extremities Extremities: no ischemia, No edema - Abdominal General gastrointestinal: Present: soft, non-tender - Integumentary Integumentary: Present: clear, warm - Musculoskeletal Musculoskeletal: strength equal bilaterally - Psychiatric Psychiatric: appropriate mood/affect, cooperative - Neurologic Neurologic: moves all extremities Plan Activity: no restrictions Diet: other Additional Instructions: If you have worsening symptoms contact MD or go to emergency room. Smoking cessation, advised nicotine patch as needed. Advised to comply with medications diet and follow-up visits. Exercise as tolerated and weight reduction when you are medically stable Plan of Treatment: Home PT with [facility] at home [phone] Follow up with: ROSETTE LOPEZ MD [Primary Care Provider] - 3-5 Days Prescriptions: Ipratropium/Albuter (Nf) [Combivent Inhaler] 0.125 gm IH QID #1 Nicotine [Habitrol] 14 mg TD DAILY #30 patch lisinopriL [Lisinopril] 10 mg PO DAILY #30 Prednisone [predniSONE 5 mg (6-Day Pack, 21 Tabs)] 5 mg PO .TAPER #1 tab.ds.pk Pantoprazole [Protonix TAB] 20 mg PO QDAY #30 tablet. ALBUTEROL NEB's [Proventil 0.083% NEBS] 2.5 mg IH Q4HRT PRN #1 nebu PRN Reason: Shortness Of Breath Tiotropium Br/Olodaterol HCl [Stiolto Respimat Inhal [place]] 4 gm IH TID #1
== END 2020-09-26 16:00 | disposition home health service (06) | DRG 391 ==
LOC: ED 19:34 → 4A 23:53 → OBSVTOIN 09-24 17:34
PROVIDERS: ADMIT Internal Medicine Geriatric Medicine; ATTEND Internal Medicine
DX: K21.9 Gastro-esophageal reflux disease without esophagitis (principal); N17.0 Acute kidney failure with tubular necrosis; J45.901 Unspecified asthma with (acute) exacerbation; J44.9 Chronic obstructive pulmonary disease, unspecified; F17.200 Nicotine dependence, unspecified, uncomplicated; E11.42 Type 2 diabetes mellitus with diabetic polyneuropathy; Z79.899 Other long term (current) drug therapy; Z98.51 Tubal ligation status
CPT/HCPCS: 36415; 71045; 71275; 78580; 80048; 80053; 82140; 82962; 83690; 83880; 84439; 84443; 84484; 85014; 85018; 85025; 85379; 85520; 85610; 87040; 93005; 93306; 93970; 94640; 94760; 96374; 96375; 99406; G0378; A9270-GY; A9540; J1644; J1815; J2270; J7030; Q9967